=== PATIENT | male | born 1990 | race Caucasian/White ===

== ENCOUNTER 2021-05-11 12:01 | Inpatient (IN) ==
[2021-05-11 12:40] LABS: Basophils # 0.1 K/mcL (0.0-0.2); Basophils % 0.3 %; Eosinophils # 0.1 K/mcL (0.0-0.6); Eosinophils % 0.4 %; Hemoglobin 15.6 g/dL (12.9-16.9); Immature Granulocytes % 0.5 % (0-4); Lymphocytes # 2.6 K/mcL (0.6-4.6); Lymphocytes % 14.7 %; Mean Corpuscular HGB Conc 33.9 g/dL (31.6-35.5); Mean Corpuscular Hemoglobin 29.7 pg (28.0-33.3); Mean Corpuscular Volume 87.5 fL (83.0-100.0); Mean Platelet Volume 9.8 fL (9.4-12.4); Monocytes # 1.1 K/mcL (0.0-1.3); Monocytes % 5.9 %; Neutrophils # 13.9 K/mcL (1.6-8.9); Platelet Count 243 K/mcL (140-400); Red Blood Count 5.26 M/mcL (4.19-5.50); Red Cell Distribution Width 12.9 % (11.5-14.5); Segmented Neutrophils % 78.2 %; White Blood Count 17.8 K/mcL (4.3-11.1)
[2021-05-11 13:15] LABS: Bilirubin,Urine Negative (Negative); Blood,Urine Negative (Negative); Clarity,Urine Clear (Clear); Color,Urine Light-Yellow (Yellow); Glucose,Urine (UA) Normal (Normal); Ketones,Urine Negative (Negative); Leukocyte Esterase,Urine Negative (Negative); Nitrite,Urine Negative (Negative); Protein,Urine 50 mg/dL (Neg-Trace); RBC,Urine 0-3 per hpf (0-3); Specific Gravity,Urine 1.011 (1.010-1.025); Urobilinogen,Urine Normal (Normal); WBC,Urine 0-3 per hpf (0-3)
[2021-05-11 13:25] LABS: Estimated Average Glucose 114 mg/dl; Hemoglobin A1C 5.6 %
[2021-05-11 13:27] LABS: Amphetamine Screen,Urine Negative ng/mL (Cutoff=1000); Barbiturate Screen,Urine Negative ng/mL (Cutoff=200); Benzodiazepines Screen,Urine Negative ng/mL (Cutoff=200); Cannabinoid Screen,Urine Negative ng/mL (Cutoff = 50); Cocaine Screen,Urine Negative ng/mL (Cutoff= 300); Opiate Screen,Urine Negative ng/mL (Cutoff=300); Phencyclidine Screen,Urine Negative ng/mL (Cutoff=25)
[2021-05-11 13:41] LABS: Acetaminophen < 10 mcg/mL (10-20); BUN/Creatinine Ratio 9 (6-26); Blood Urea Nitrogen 7 mg/dL (6-20); Calcium 9.8 mg/dL (8.6-10.3); Carbon Dioxide 26 mEq/L (23-29); Chloride 100 mEq/L (98-107); Chol/HDL Ratio 9.8 (0-4.9); Cholesterol 246 mg/dL (< 200); Ethanol < 10 mg/dL (Less than 10); Glucose 97 mg/dL (70-105); HDL Cholesterol 25 mg/dL (40-59); Osmolality,Calculated 282 (280-300); Potassium 3.9 mEq/L (3.5-5.1); Salicylate < 2.5 mg/dL (15.0-30.0); Sodium 137 mEq/L (136-145); Triglycerides 1116 mg/dL (< 150); eGFR For African Americans > 60 (> 60); eGFR For Non-African Americans > 60 (> 60)
[2021-05-11] MEDS ORDERED: Acetaminophen 325 MG TABLET PO ONE (13:49)
[2021-05-11 17:26] LABS: Influenza A PCR Negative (Negative); Influenza B PCR Negative (Negative); Resp. Syncytial Virus PCR Negative (Negative); SARS-CoV-2 by PCR (In House) Negative (Negative)
[2021-05-11] MEDS ORDERED: *HR* LORazepam 1 MG TABLET PO PRN (17:41)
[2021-05-11] MEDS ORDERED: *HR* LORazepam 2 MG/ML VIAL IM PRN (17:41)
[2021-05-11] MEDS ORDERED: Acetaminophen 325 MG TABLET PO PRN (17:41)
[2021-05-11] MEDS ORDERED: hydrOXYzine pamoate 25 MG CAPSULE PO PRN (17:41)
[2021-05-11] MEDS ORDERED: Haloperidol Lactate 5 MG/ML VIAL IM PRN (17:41)
[2021-05-11] MEDS ORDERED: haloperidoL 5 MG TABLET PO PRN (17:41)
[2021-05-11] MEDS ORDERED: traZODone 50 MG TABLET PO PRN (21:00)
[2021-05-11] MEDS: amLODIPine 5 MG TABLET PO SCH (22:05)
[2021-05-11] MEDS: Metoprolol XL (24 HR) Succ 25 MG TAB.ER.24H PO SCH (22:05)
[2021-05-11] MEDS: Nicotine 2 MG GUM BC PRN (22:05)
[2021-05-12] MEDS: Nicotine 2 MG GUM BC PRN ×6 (06:22→22:08)
[2021-05-12] MEDS: Metoprolol XL (24 HR) Succ 25 MG TAB.ER.24H PO SCH (08:02)
[2021-05-12] MEDS: amLODIPine 5 MG TABLET PO SCH (08:02)
[2021-05-12] MEDS ORDERED: *HR* LORazepam 0.5 MG TABLET PO PRN (12:46)
[2021-05-13] MEDS: Nicotine 2 MG GUM BC PRN ×5 (06:20→21:06)
[2021-05-13] MEDS: amLODIPine 5 MG TABLET PO SCH (08:33)
[2021-05-13] MEDS: Metoprolol XL (24 HR) Succ 25 MG TAB.ER.24H PO SCH (08:33)
[2021-05-14] MEDS: Nicotine 2 MG GUM BC PRN ×2 (07:54→10:28)
[2021-05-14] MEDS: amLODIPine 5 MG TABLET PO SCH (08:04)
[2021-05-14] MEDS: Metoprolol XL (24 HR) Succ 25 MG TAB.ER.24H PO SCH (08:04)
[2021-05-14 09:37] VITALS: BP 150/97; PULSE 81; TEMP 98; O2SAT 95
== END 2021-05-14 12:45 | disposition home or self-care (01) | DRG 885 ==
LOC: EMEROOARM 12:01 → 1ANU 15:18
PROVIDERS: ADMIT Psychiatry & Neurology Psychiatry; ATTEND Psychiatry & Neurology Psychiatry